=== PATIENT | male | born 1950 | race African-American/Black ===

== ENCOUNTER → 2016-03-19 | Day surgery (SDC) | payer OTHER ==
[~2016-03-19] VITALS: Ht 180.3 cm; Wt 86.6 kg
[2016-03-19] VITALS (9 sets, daily range): BP systolic 127–159; BP diastolic 75–93
[~2016-03-19] MED LIST: AMLODIPINE BESYL5 MG ORAL; Bupivacaine 0.25% Inj 30ml INJ ONE; Bupivacaine w/Epi 0.25% 30ml Vial INJ ONE; Dexamethasone 4mg/ml vial ONE; Duramorph PF 10mg/10ml amp ONE; EPZICOM TABLET1 EAC1 ORAL; Hydromorphone 0.5mg/0.5ml inj IVP PRN; ISENTRESS400 MG ORAL; Kenalog-40 1ml Vial ONE; Ketorolac 30mg Inj IM ONE; Ketorolac 30mg Inj IV PRN; LISINOPRIL40 MG ORAL; Lidocaine 1% 10mg/ml/Epi 0.005mg/ml 30ml vial INJ ONE; Morphine Sulfate 2mg/ml Inj IVP PRN; NS Irrig 4000ml IRRIG ONE; Norco 5mg/325mg tab ORAL PRN; PRAVASTATIN SOD20 M1 ORAL; VIREAD300 MG ORAL; ceFAZolin 1gm/50ml Premix 50 ML IV ONE; celeBREX 200mg Cap **SURGERY PATIENTS ONLY ORAL ONE; ePHEDrine 50mg/ml Inj ONE; fentaNYL 100 mcg/2 mL IV PRN; oxyCONTIN 20mg tab ORAL ONE
--- NOTE | 2016-03-19 07:48 | Pre-Procedure Note/Attestation ---
Pre-Procedure Note/Attestation Complete Prior to Procedure Planned Procedure: right Procedure Narrative: knee arthroscopy, possible menisectomt,synovectomy Indications for Procedure Pre-Operative Diagnosis: right knee internal derangement Attestation I attest that I discussed the nature of the procedure; its benefits; risks and complications; and alternatives (and the risks and benefits of such alternatives ), prior to the procedure, with the patient (or the patient's legal retail service representative). I attest that, if there was a reasonable possibility of needing a blood transfusion, the patient (or the patient's legal retail service representative) was given the [facility] standardized written summary, pursuant to the [place] Blood Safety Act ([place] Health and Safety Code # 1645, as amended). I attest that I re-evaluated the patient just prior to the surgery and that there has been no change in the patient's H&P, except as documented below: PADILLA BURTON Mar 19, 2016 07:48
--- NOTE | 2016-03-19 07:48 | Operative Note - PDOC ---
Operative Note Operative Note Pre-op Diagnosis: right knee internal derangement Procedure: right knee arthroscopy Post-op Diagnosis: same as pre-op Operative Findings: consistent w/pre-op dx studies Anesthesia: general Specimen: none Complications: none Condition: stable Estimated Blood Loss: none Implant(s) used?: No PADILLA BURTON Mar 19, 2016 07:48
--- NOTE | 2016-03-19 08:23 | Immediate Post-Op Evaluation ---
Immediate Post-Op Evalulation Immediate Post-Op Evalulation Procedure: Meniscus Debridement Date of Evaluation: Mar 19, 2016 Time of Evaluation: 08:22 IV Fluids: 300 Blood Products: 0 Estimated Blood Loss: 2 Urinary Output: 0 Blood Pressure Systolic: 156 Blood Pressure Diastolic: 93 Pulse Rate: 85 Respiratory Rate: 20 O2 Sat by Pulse Oximetry: 100 Temperature (Fahrenheit): 98 Pain Score (1-10): 1 Nausea: No Vomiting: No Complications na Patient Status: awake Hydration Status: adequate Drug: Ancef 2G Given Within 1 Hr of Incision: Yes Time Given: 07:55 PEDRO HALEY M.D. Mar 19, 2016 08:23
--- NOTE | 2016-03-19 08:25 | Anethesia Preoperative Eval ---
Anesthesia Pre-op PMH/ROS General Date of Evaluation: Mar 19, 2016 Time of Evaluation: 07:50 Anesthesiologist: Cherry ASA Score: ASA 3 Mallampati Score Class I : Soft palate, uvula, fauces, pillars visible Class II: Soft palate, uvula, fauces visible Class III: Soft palate, base of uvula visible Class IV: Only hard plate visible Mallampati Classification: Class III Surgeon: Alberto Diagnosis: INternal Derangement Surgical Procedure: Meniscus Debridement Family History: no anesthesia problems Allergies: Coded Allergies: No Known Allergies (Verified Allergy, Unknown, 01/21/10) Medications: see eMAR Past Medical History Pulmonary: Reports: COPD Gastrointestinal/Genitourinary: Denies: CRI, ESRD, GERD, other Endocrine: Denies: DM, hypothyroidism, other, steroids HEENT: Denies: [place] (L), [place] (R), cataract (L), cataract (R), glaucoma, other Hematology/Immune: Denies: DVT, anemia, bleeding disorder, other Musculoskeletal/Integumentary: Reports: DJD Anesthesia Pre-op Phys. Exam Physician Exam Last Vital Signs Date Time Temp Pulse Resp B/P Pulse Ox O2 Delivery O2 Flow Rate FiO2 03/19/16 06:20 97.9 92 20 148/92 99 Room Air Constitutional: NAD Neurologic: CN 2-12 intact Cardiovascular: no M/R/G Respiratory: CTA Airway Exam Mallampati Score: Class III PEDRO HALEY M.D. Mar 19, 2016 08:25
--- NOTE | 2016-03-19 08:28 | 48 Hour Post Anesthesia Eval ---
Post Anesthesia Evaluation Procedure: Meniscus Debridement Date of Evaluation: Mar 19, 2016 Time of Evaluation: 09:30 Blood Pressure Systolic: 160 0: 85 Pulse Rate: 85 Respiratory Rate: 20 Temperature (Fahrenheit): 98 O2 Sat by Pulse Oximetry: 99 Airway: patent Nausea: No Vomiting: No Pain Intensity: 2 Hydration Status: adequate Cardiopulmonary Status: Stable Mental Status/LOC: patient returned to baseline Follow-up Care/Observations: na Post-Anesthesia Complications: na Follow-up care needed: N/A PEDRO HALEY M.D. Mar 19, 2016 08:28
--- NOTE | 2016-03-19 21:18 | Operative Note - Dictated ---
DATE OF OPERATION: 03/19/2016 PREOPERATIVE DIAGNOSES: 1. Right knee internal derangement. 2. Internal derangement of right knee and anterior cruciate ligament sprain. POSTOPERATIVE DIAGNOSES: 1. Right knee grade 4 chondral damage on the posterior medial femoral condyle. 2. Posterior horn medial meniscus tear at the root. 3. Hypertrophic synovial tissue medial and lateral patellofemoral compartment. PROCEDURES: 1. Right knee diagnostic arthroscopy and partial medial meniscectomy. 2. Chondroplasty of medial femoral condyle. 3. Synovectomy of medial and lateral patellofemoral compartment. SURGEON: Corey Dominguez M.D. ANESTHESIA: MAC with local. INDICATION FOR PROCEDURE: The patient is a pleasant gentleman, who has had episode of right knee pain. He had an MRI, which showed anterior cruciate ligament sprain. He had continued symptoms despite conservative treatment. Therefore, we elected to undergo right knee diagnostic arthroscopy and possible meniscectomy, synovectomy and chondroplasty. Risks, limitations, expectations and complications related to procedure were discussed in detail. All questions were addressed. DESCRIPTION OF PROCEDURE: An informed consent was obtained, the patient was brought to the operating room and was placed under general anesthesia. Tourniquet was applied to the right proximal thigh. Right leg was prepped and draped in a sterile manner. Time-out was performed. Under sterile conditions, 20 mL of 0.25% Marcaine plain was injected in to the right knee. Port sites were injected with 1% lidocaine with epinephrine. Esmarch was used to exsanguinate the extremity. Inferolateral stab incision was then made. Trocar was introduced into the knee joint. There is significant hypertrophic synovial tissue in medial and lateral patellofemoral compartment making visualizing somewhat difficult. The medial compartment was finally entered. Working portal was established. Synovectomy was started at the medial compartment into condylar notch lateral compartment to better visualize the knee. Once that was done, that medial aspect was well probed and the posterior horn of medial meniscus was slightly probed and a partial meniscectomy was completed. Once that was done, an area that measures approximately size of a nickel in the posteromedial aspect of the knee was evaluated as grade 4 chondral damage. A gentle chondroplasty of this area was performed. Once this was completed, the anterior cruciate ligament was probed, given that the perioperative is a consideration for anterior cruciate ligament sprain it was noted that this anterior cruciate ligament hypertrophic synovial tissue consistent with a knee injury. This was debrided. The remaining anterior cruciate ligament was probed, noted to be intact and no gross instability. Once that was done, the lateral compartment was entered. There is no significant meniscal chondral damage. At this point, the camera was placed in the medial portal and synovectomy lateral gutter was performed. Once that was completed, instruments were removed. Portal sites was closed with 3-0 Monocryl sutures. Intraarticular injection containing 0.25% Marcaine with epinephrine, 40 mg of Kenalog, and 5 mL of Duramorph, and 30 mg of Toradol was injected. The patient was awoken and taken to recovery room with stable vital signs. ESTIMATED BLOOD LOSS: None. COMPLICATIONS: None. SPECIMENS: None. IMPLANTS: None. Corey Dominguez M.D. DR: ZOEY JOB#: [id number] CC:
== END | disposition home or self-care (01) ==
LOC: SUR 05:16
DX: M23.221 Derangement of posterior horn of medial meniscus due to old tear or injury, right knee (principal); M67.261 Synovial hypertrophy, not elsewhere classified, right lower leg; M94.8X6 Other specified disorders of cartilage, lower leg; I10 Essential (primary) hypertension; E78.00 Pure hypercholesterolemia, unspecified; J44.9 Chronic obstructive pulmonary disease, unspecified; M19.90 Unspecified osteoarthritis, unspecified site; Z87.891 Personal history of nicotine dependence
CPT/HCPCS: 29881; 97161; J0690; J1100; J1885; J2274; J2405; J3301; J3490; 94003; 94150